=== PATIENT | female | born 1995 | race Hispanic/Latino ===

== ENCOUNTER 2018-11-14 00:22 | Emergency (ER) | payer OTHER ==
[2018-11-14] MEDS ORDERED: Famotidine In NaCl 20 mg/50 ml Premix Bag ONE (00:32)
[2018-11-14] MEDS ORDERED: Acetaminophen 500 MG TAB ONE (01:24)
[2018-11-14] MEDS ORDERED: Dexamethasone 4 MG TAB ONE (05:22)
[2018-11-14] MEDS ORDERED: diphenhydrAMINE 25 MG CAP ONE (05:22)
== END 2018-11-14 06:00 | disposition home or self-care (01) ==
LOC: MADERS 00:22
DX: T78.2XXA Anaphylactic shock, unspecified, initial encounter (principal); Z79.899 Other long term (current) drug therapy
CPT/HCPCS: 96365; J8540; Q0163